=== PATIENT | male | born 1965 | race Two or more races ===

== ENCOUNTER 2019-09-25 08:38 | Day surgery (SDC) | payer BC ==
[~2019-09-25] VITALS: Ht 172.7 cm; Wt 88.9 kg
[2019-09-25 09:30] VITALS: BP 123/85
--- NOTE | 2019-09-25 09:47 | Anethesia Preoperative Eval ---
Anesthesia Pre-op PMH/ROS General Date of Evaluation: Sep 25, 2019 Time of Evaluation: 10:12 Anesthesiologist: Marily Jacobson CRNA ASA Score: ASA 2 Mallampati Score Class I : Soft palate, uvula, fauces, pillars visible Class II: Soft palate, uvula, fauces visible Class III: Soft palate, base of uvula visible Class IV: Only hard plate visible Mallampati Classification: Class II Surgeon: Elizabeth Diagnosis: colon screening Surgical Procedure: colonoscopy diagnostic Anesthesia History: none Family History: no anesthesia problems Allergies: Coded Allergies: No Known Allergies (Unverified , 09/25/19) Medications: see eMAR Patient NPO?: Yes NPO Date: Sep 25, 2019 NPO Time: 00:00 Past Medical History Cardiovascular: Denies: HTN, CAD, DC, valve dz, arrhythmia, other Pulmonary: Reports: CHIARA - no CPAP/BIPAP; Denies: asthma, COPD, other Gastrointestinal/Genitourinary: Denies: GERD, CRI, ESRD, other Neurologic/Psychiatric: Denies: dementia, CVA, depression/anxiety, TIA, other Endocrine: Denies: DM, hypothyroidism, steroids, other HEENT: Denies: cataract (L), cataract (R), glaucoma, KOTLIK (L), KOTLIK (R), other Hematology/Immune: Denies: anemia, DVT, bleeding disorder, other Musculoskeletal/Integumentary: Denies: OA, RA, DJD, DDD, edema, other PMH Narrative: as noted above PSxH Narrative: tonsillectomy Anesthesia Pre-op Phys. Exam Physician Exam Last Vital Signs Date Time Temp Pulse Resp B/P (MAP) Pulse Ox O2 Delivery O2 Flow Rate FiO2 09/25/19 09:30 98.2 71 18 123/85 100 Room Air Constitutional: NAD Neurologic: CN 2-12 intact Cardiovascular: RRR Respiratory: CTA Gastrointestinal: S/NT/ND Airway Exam Mallampati Score: Class II MO: full Neck: FROM TMD: > 3 FB ROM: full Teeth: intact Dentures: no upper, no lower Anesthesia Pre-op A/P Studies Pre-op Studies: EKG - NSR Risk Assessment & Plan Assessment: ASA 2, ok to proceed Plan: MAC Status Change Before Surgery: No Pre-Antibiotics Given Within 1 Hr of Incision: Marily Espinal CRNA Sep 25, 2019 09:47
[2019-09-25] MEDS ORDERED: LR 1000ml ONE (10:00)
[2019-09-25] MEDS ORDERED: Propofol 200mg/20ml IV ONE (10:00)
[2019-09-25] MEDS ORDERED: Lidocaine 1% MPF 10mg/ml 5ml ONE (10:00)
--- NOTE | 2019-09-25 10:19 | Pre-Procedure Note/Attestation ---
Pre-Procedure Note/Attestation Complete Prior to Procedure Planned Procedure: not applicable Procedure Narrative: colonoscopy Indications for Procedure Pre-Operative Diagnosis: screening Attestation I attest that I discussed the nature of the procedure; its benefits; risks and complications; and alternatives (and the risks and benefits of such alternatives ), prior to the procedure, with the patient (or the patient's legal medical service representative). I attest that, if there was a reasonable possibility of needing a blood transfusion, the patient (or the patient's legal medical service representative) was given the [facility] standardized written summary, pursuant to the Tyron Madill Blood Safety Act ([place] Health and Safety Code # 1645, as amended). I attest that I re-evaluated the patient just prior to the surgery and that there has been no change in the patient's H&P, except as documented below: Junior Johnson MD Sep 25, 2019 10:19
--- NOTE | 2019-09-25 10:20 | Short Stay Surgery H&P ---
History of Present Illness History of Present Illness Chief Complaint screening colon HPI Behnoush Tunde Broussard is a 54 year old male who was admitted on for Gerd And Screening Patient History Allergies: Coded Allergies: No Known Allergies (Unverified , 09/25/19) PAST MEDICAL HISTORY: (1) Sleep apnea (2) GERD (gastroesophageal reflux disease) Review of Systems Cardiovascular: Reports: no symptoms Respiratory: Reports: no symptoms Skeletal: Reports: no symptoms Gastrointestinal: Reports: no symptoms Genitourinary: Reports: no symptoms Neurologic: Reports: no symptoms Endocrine: Reports: no symptoms Hematologic: Reports: no symptoms Physical Exam Vital Signs Last Vital Signs Date Time Temp Pulse Resp B/P (MAP) Pulse Ox O2 Delivery O2 Flow Rate FiO2 09/25/19 09:30 98.2 71 18 123/85 100 Room Air Skin: normal HENT: normal Heart: normal Lungs: normal Abdomen: normal Extremities: normal Plan Plan of Care colonoscopy Attestation Are the patient's medical conditions optimized for surgery? Attestation Response: yes Junior Johnson MD Sep 25, 2019 10:20
--- NOTE | 2019-09-25 10:41 | Endoscopy Procedure Note ---
Endoscopy Procedure Note General Indication for Procedure: screening Procedures Performed: colonoscopy Operative Findings/Diagnosis: one polyp Specimen: yes Pt Tolerated Procedure Well: Yes Estimated Blood Loss: none Anesthesia Anesthesiologist: rebecca Anesthesia: MAC Inserted Devices Implant(s) used?: No Quality Quality of Bowel Preparation: Good Did scope reach the cecum?: Yes Was there any complications?: No GI Core Measures 50 yrs or older w/o bx or poly: No 10yrs. F/U recommended: Yes If not recommended, why?: Above average risk 18 years or older w/prev. colo: No Junior Johnson MD Sep 25, 2019 10:41
[2019-09-25 10:49] VITALS: BP 119/75
[2019-09-25 10:54] VITALS: BP 123/74
[2019-09-25 10:59] VITALS: BP 115/72
--- NOTE | 2019-09-25 11:01 | Immediate Post-Op Evaluation ---
Immediate Post-Op Evalulation Immediate Post-Op Evalulation Procedure: Colonoscopy with biopsy Date of Evaluation: Sep 25, 2019 Time of Evaluation: 10:55 IV Fluids: LR 600 ml Blood Pressure Systolic: 119 Blood Pressure Diastolic: 75 Pulse Rate: 79 Respiratory Rate: 22 O2 Sat by Pulse Oximetry: 99 Temperature (Fahrenheit): 98.8 Pain Score (1-10): 0 Nausea: No Vomiting: No Complications none Patient Status: awake, patent Hydration Status: adequate Given Within 1 Hr of Incision: Marily Espinal CRNA Sep 25, 2019 11:01
[2019-09-25 11:11] VITALS: BP 100/70
[2019-09-25 12:49] VITALS: BP 100/70
--- NOTE | 2019-09-25 12:49 | 48 Hour Post Anesthesia Eval ---
Post Anesthesia Evaluation Procedure: Colonoscopy with biopsy Date of Evaluation: Sep 25, 2019 Time of Evaluation: 12:20 Blood Pressure Systolic: 100 0: 70 Pulse Rate: 63 Respiratory Rate: 15 Temperature (Fahrenheit): 98.5 O2 Sat by Pulse Oximetry: 98 Airway: patent Nausea: No Vomiting: No Pain Intensity: 0 Hydration Status: adequate Cardiopulmonary Status: stable Mental Status/LOC: patient returned to baseline Follow-up Care/Observations: per GI Post-Anesthesia Complications: none Follow-up care needed: N/A Marily Jacobson CRNA Sep 25, 2019 12:49
--- NOTE | 2019-09-25 15:00 | Procedure Note ---
DATE OF PROCEDURE: 09/25/2019 SURGEON: Junior Johnson M.D. PROCEDURE: Colonoscopy with biopsy. ANESTHESIA: Per Marily HEATH. INSTRUMENT: Olympus adult flexible colonoscope. INDICATION: Screening colonoscopy. REASON FOR PROCEDURE: The procedure, risks, benefits, and possible consequences, including hemorrhage, aspiration, perforation and infection, and alternative treatments, were explained to the patient/legal guardian by Dr. Junior Johnson and the patient/legal guardian understood and accepted these risks. PROCEDURE IN DETAIL: After informed consent was obtained and the patient was adequately sedated, first rectal exam was performed, which was positive for internal hemorrhoids. Then, the scope was advance from the rectum into cecum then subsequently to terminal ileum. Quality of prep was very good. The patient had one polyp in the transverse colon, measured roughly about 3 to 4 mm, removed with cold biopsy forceps technique. The rest of the colonoscopy examination grossly within normal limit. Retroflexion of rectum showed evidence of small internal hemorrhoids. SUMMARY OF FINDINGS: 1. One colonic polyp removed, see above for details. 2. Internal hemorrhoids. 3. Otherwise normal colonoscopy examination. RECOMMENDATIONS: Follow pathology. We recommend repeat colonoscopy in 5 years. Junior Johnson M.D. DR: AG JOB#: [id number] CC:
== END 2019-09-25 11:50 | disposition home or self-care (01) ==
LOC: GAS 08:38
DX: Z12.11 Encounter for screening for malignant neoplasm of colon (principal); K63.5 Polyp of colon; K64.8 Other hemorrhoids; K21.9 Gastro-esophageal reflux disease without esophagitis; G47.30 Sleep apnea, unspecified; G47.33 Obstructive sleep apnea (adult) (pediatric); D12.3 Benign neoplasm of transverse colon
CPT/HCPCS: 45380; J2704; J7120; 94003; 94150